=== PATIENT | male | born 1975 | race Caucasian/White ===

== ENCOUNTER → 2019-06-29 09:03 | Outpatient (CLI) | payer BC, SELFPAY ==
--- NOTE | ~2019-06-29 | MR_ITS ---
EXAMINATION: MR lumbar spine wo con EXAM DATE: 06/29/2019 10:19 INDICATION: Low back pain, bilateral leg pain. TECHNIQUE: Multi-sequential, multiplanar MR images of the lumbar spine were obtained without contrast . Sagittal T1, T2, T2 fat saturation images. Axial T2 weighted images. Comparison is made to prior examination from 07/04/2015. FINDINGS: There is moderate disc disease L5-S1 with 3 mm retrolisthesis. The vertebral bodies are oth erwise aligned. The vertebral body and disc heights are otherwise well maintained. There are no suspi cious marrow signal abnormalities. The conus medullaris terminates at the T12-L1 level and has normal signal intensity and morphology. Level by level evaluation: T12-L1: Disc does not extend beyond the endplate margin. Facet arthropathy: None. Neural foraminal stenosis: No stenosis. Central canal stenosis: No stenosis. L1-L2: There is a minimal diffuse disc bulge. Facet arthropathy: Mild. Neural foraminal stenosis: No stenosis. Central canal stenosis: No stenosis. L2-L3: There is a minimal diffuse disc bulge. Facet arthropathy: Mild. Neural foraminal stenosis: No stenosis. Central canal stenosis: No stenosis. L3-L4: There is a mild diffuse disc bulge. Facet arthropathy: Mild. Neural foraminal stenosis: Mild to moderate left, mild right. Central canal stenosis: Mild. L4-L5: There is a mild to moderate diffuse disc bulge. Facet arthropathy: Mild. Neural foraminal stenosis: Mild to moderate left, mild right. Central canal stenosis: Mild to moderate. L5-S1: There is a mild to moderate diffuse disc bulge. Facet arthropathy: Mild. Neural foraminal stenosis: Mild bilateral. Central canal stenosis: Mild. Mild progression compared to prior study. IMPRESSION: Mild to moderate lower lumbar spondylosis. Reviewed, dictated and finalized at location B. ER ANALYST
== END ==
PROVIDERS: Visit Provider Physician Assistant Medical
DX: M47.26 Other spondylosis with radiculopathy, lumbar region (principal)
CPT/HCPCS: 72148

== ENCOUNTER 2020-11-20 10:51 | Emergency (ER) | payer BC, SELFPAY ==
[2020-11-20 10:58] VITALS: BP 112/73; PULSE 84; RESP 16; TEMP 36.8; O2SAT 98
--- NOTE | 2020-11-20 11:41 | ED.BURNSMOKE ---
HPI - Burn/Smoke Inhalation General Chief complaint: Burn/Smoke Inhalation Stated complaint: rt finger burn Time Seen by Provider: 11/20/20 11:38 Source: patient and RN notes reviewed Mode of arrival: ambulatory Limitations: no limitations History of Present Illness HPI Narrative: 44 year old male presents with concern for burn to the 2nd digit of the right hand that he sustained while cooking last night. He reports an intact blister to the dorsal aspect of the digit not involving the nail bed. He denies any decrease sensation, strength, range of motion, purulent drainage to the digit. Reports he put a an [id number] burn cream on the burn last night. MD Complaint: burn Related Data Home Medications Medication Instructions Recorded Confirmed buprenorphine HCl mg SUBLINGUAL 11/20/20 buspirone mg 11/20/20 sertraline mg 11/20/20 Allergies Allergy/AdvReac Type Severity Reaction Status Date / Time NSAIDS (Non-Steroidal Allergy Intermediate Unknown Verified 06/19/17 19:50 Anti-Inflamma naproxen Allergy Unknown Verified 04/30/16 19:03 Review of Systems Review of Systems: Narrative: CONSTITUTIONAL: Denies malaise, chills, sweats, or fever. SKIN: Reports a blister to the second digit of the right hand MUSCULOSKELETAL: Denies muscle skeletal pain NEUROLOGIC: Denies numbness, weakness All systems reviewed & are unremarkable except as noted in HPI and below PMFSH Comments At time of signature, agree with nursing past medical, surgical, social and family history. There is no relevant family history pertinent to the presenting complaint Exam Narrative: Exam Narrative: GENERAL: Well-appearing, well-nourished, and in no acute distress. HEAD: Normocephalic, atraumatic. EYES: PERRLA, conjunctivae clear, and EOMI. ENT: Mucous membranes moist. Oropharynx without edema, erythema or lesions. NECK: Supple. No lymphadenopathy CHEST: Clear to auscultation. No respiratory distress. HEART: Regular rate and rhythm. SKIN: Warm, dry. 1 cm in diameter intact blister with clear fluid noted to the dorsal aspect of the distal second digit of the right hand with mild surrounding erythema without induration, edema, drainage. NEURO: Alert and oriented x3. PSYCH: Normal mood and affect Course Course Emergency Course: Patient is aware of diagnosis, understands and agrees to treatment plan. Anticipatory guidance given. Patient agrees to follow-up as directed and is aware of reasons to seek care at the emergency department. Portions of this record may have been created with voice recognition software Vital Signs Vital signs: Vital Signs Temperature 98.2 F 11/20/20 10:58 Pulse Rate 84 11/20/20 10:58 Respiratory Rate 16 11/20/20 10:58 Blood Pressure 112/73 11/20/20 10:58 Pulse Oximetry 98 11/20/20 10:58 Temperature 98.2 F 11/20/20 10:58 Pulse Rate 84 11/20/20 10:58 Respiratory Rate 16 11/20/20 10:58 Blood Pressure 112/73 11/20/20 10:58 Pulse Oximetry 98 11/20/20 10:58 Reviewed. MDM - Burn/Smoke Inhalation MDM Narrative Medical decision making narrative: Exam findings show no acute concerns or changes; patient is non-toxic appearing and is in no distress. Patient is appropriate for outpatient treatment and follow-up. Critical Care Time Critical Care Time Critical Care Time: No Discharge Plan Discharge Clinical Impression: Second degree burn Patient Disposition: Home, Self-Care Condition: Stable Instructions: Second-Degree Burn (ED) Additional Instructions: 1) Please follow-up with your primary care doctor if symptoms worsen or do not improve. Look for signs of infection such as increasing redness, pain, swelling, if you notice any of these please follow-up with your primary care provider. 2) If you have any urgent concerns please go to the ER. 3) Please take medications as prescribed and continue taking your home medications as usual. 4) Please read and follow information incl
== END 2020-11-20 11:54 | disposition home or self-care (01) ==
PROVIDERS: Emergency Provider Nurse Practitioner
DX: T23.221A Burn of second degree of single right finger (nail) except thumb, initial encounter (principal); X08.8XXA Exposure to other specified smoke, fire and flames, initial encounter; Y93.G3 Activity, cooking and baking; F41.9 Anxiety disorder, unspecified
CPT/HCPCS: 99203; G0463

== ENCOUNTER 2021-09-17 01:55 | Emergency (ER) | payer BC, SELFPAY ==
--- NOTE | ~2021-09-17 | XR_ITS ---
EXAMINATION: XR abdomen/kub 1V INDICATION: Bilateral flank pain, nausea and vomiting TECHNIQUE: Supine views of the abdomen were obtained on 2 radiographs. COMPARISON: None FINDINGS: The bowel gas pattern is normal. There are no dilated loops of bowel. A phlebolith is noted in the left pelvis. IMPRESSION: 1. Unremarkable abdominal radiographs. Reviewed, dictated and finalized at location A.
[2021-09-17 02:02] VITALS: BP 155/90; PULSE 89; RESP 18; TEMP 36.3; O2SAT 100
[2021-09-17] MEDS: ONDANSETRON HCL ODT 4 MG TABLET PO (02:14)
--- NOTE | 2021-09-17 02:19 | ED.URI ---
HPI - URI/Sore Throat General Chief Complaint: Abdominal Pain Stated Complaint: N/V/D, SOB, hematuria Time Seen by Provider: 09/17/21 02:02 History of Present Illness HPI Narrative: 45-year-old male diagnosed with COVID several days ago presents stating that he is having body aches, nausea and vomiting and diarrhea he states he is unable to keep anything down. Related Data Home Medications Medication Instructions Recorded Confirmed buspirone mg 11/20/20 sertraline mg 11/20/20 hydrocodone bitartrate mg PO 09/17/21 tizanidine mg 09/17/21 Allergies Allergy/AdvReac Type Severity Reaction Status Date / Time NSAIDS (Non-Steroidal Allergy Intermediate Unknown Verified 06/19/17 19:50 Anti-Inflamma naproxen Allergy Unknown Other Verified 09/17/21 02:05 Review of Systems Review of Systems: CONST: Fever HEENT: Sore throat C/V: No chest pain RESP: Cough GI: Reports nausea, vomiting[, diarrhea] : Dark urine. M/S: Muscle aches. SKIN: No rash. NEURO: [No focal numbness or weakness] PSYCH: [No depression] [facility] Past Medical History Medical History (Updated 09/17/21 @ 04:11 by Mili Edwards MD) Chronic back pain Social History Social History (Updated 09/17/21 @ 04:11 by Mili Edwards MD) Living arrangements: with family Exam Narrative: EXAMINATION OF ORGAN SYSTEMS/BODY AREAS: Constitutional: Vital signs per nursing GENERAL:[No acute distress, non-toxic appearing.] HEAD: Normal with no signs of head trauma. EYES: EOMI, conjunctiva normal ENT: Hearing grossly intact LUNGS: Nonlabored breathing. HEART: [Regular rate and rhythm] ABD: [Soft], [nontender to palpation] BACK: No CVAT but TTP lower back without midline tenderness EXT: Normal range of motion SKIN: [No rashes or lesions.] NEURO: [Alert and oriented x 3. No gross focal sensory or strength deficits.] Course Course Emergency Course: 45-year-old male presents with body aches and nausea from COVID, vital signs stable here, exam shows well-appearing patient with tenderness of his lower back, I suspect likely all symptoms from the virus, doubt any intra-abdominal etiology without tenderness, doubt kidney stones without flank pain but given his report of dark urine and back pain I will obtain a KUB and UA. He is unable to provide urine at this time, KUB does not show stones, he is tolerating p.o. after Zofran and can be discharged home on this medication. Strict return precautions provided including any increase difficulty breathing or inability to tolerate p.o. Vital Signs Vital signs: Vital Signs Temperature 97.4 F L 09/17/21 02:02 Pulse Rate 89 09/17/21 02:02 Respiratory Rate 18 09/17/21 02:02 Blood Pressure 155/90 H 09/17/21 02:02 Pulse Oximetry 100 09/17/21 02:02 Temperature 97.4 F L 09/17/21 02:02 Pulse Rate 70 09/17/21 03:01 Respiratory Rate 17 09/17/21 03:01 Blood Pressure 132/86 09/17/21 03:01 Pulse Oximetry 99 09/17/21 03:01 Discharge Plan Discharge Clinical Impression: COVID-19 Patient Disposition: Home, Self-Care Condition: Stable Instructions: Antibiotic Form, COVID-19 (Coronavirus Disease 2019) (ED) Additional Instructions: Get some rest when you get home, you can take the nausea medicine as needed and follow up with your doctor. Prescriptions: New ondansetron 4 mg tablet,disintegrating 4 mg PO Q6H PRN (Reason: nausea and vomiting) Qty: 10 RF: 0 No Action buspirone 7.5 mg tablet RF: 0 sertraline 50 mg tablet RF: 0 silver sulfadiazine [Silvadene] 1 % cream 1 applic topical DAILY Qty: 25 RF: 0 tizanidine 4 mg tablet RF: 0 hydrocodone bitartrate 30 mg capsule, oral only, ER 12hr PO RF: 0 Follow-up/Referrals: PHYSICIAN,DELIVERY SUPERVISOR [Primary Care Provider] -
[2021-09-17 03:01] VITALS: BP 132/86; PULSE 70; RESP 17; O2SAT 99
== END 2021-09-17 03:21 | disposition home or self-care (01) ==
PROVIDERS: Emergency Provider Emergency Medicine
DX: U07.1 COVID-19 (principal)
CPT/HCPCS: 74018; 99283; A9270

== ENCOUNTER 2021-09-18 21:17 | Emergency (ER) | payer BC, SELFPAY ==
--- NOTE | ~2021-09-18 | CT_ITS ---
EXAMINATION: CT brain wo con DATE: 09/18/2021 21:58 INDICATION: headache, syncope TECHNIQUE: Computed tomography (CT) of the head was performed without intravenous contrast. The mA wa s adjusted according to patient size. Iterative reconstruction technique was employed. The dose-lengt h product was 605.33 mGy-cm. COMPARISON: None FINDINGS: No acute intracranial hemorrhage or extra-axial fluid collection. No hydrocephalus, mass, or herniation. No acute ischemic infarct. Unremarkable dural venous sinus attenuation. No acute osseous abnormality. The aerated spaces are clear. IMPRESSION: No acute intracranial process. Reviewed, dictated and finalized at location K.
--- NOTE | ~2021-09-18 | XR_ITS ---
EXAMINATION: XR chest 1V portable Exam Date/Time: 09/18/2021 22:00 CDT CLINICAL HISTORY: sob, covid+ 09/14,CHEST TIGHTNESS,SOMNOLENCE,PALE,DIAPHORETIC Comparison: None available. RESULT: Lines, tubes, and devices: None. Lungs and pleura: Clear. Cardiomediastinal silhouette: Normal cardiomediastinal silhouette. Other: No acute osseous or upper abdominal finding. IMPRESSION: No acute cardiopulmonary process Reviewed, dictated and finalized at location K.
--- NOTE | ~2021-09-18 | CT_ITS ---
EXAMINATION: CTA chest PE abdomen pel DATE: 09/18/2021 23:33 INDICATION: Shortness of breath. Abnormal liver function tests. COVID-19 positive. TECHNIQUE: Computed tomography angiography (CTA) of the chest was performed with 100 mL Omnipaque-350 intravenous contrast timed to evaluate the pulmonary arteries. Coronal maximum intensity projection 3D-reconstructions were created by the technologist. Computed tomography (CT) of the abdomen and pelv is was performed with intravenous contrast. Automated exposure control and iterative reconstruction t echnique were employed. The dose-length product was 602.33 mGy-cm. COMPARISON: None. FINDINGS: CTA chest: The lungs demonstrate mild atelectasis. No pleural effusion. The heart size is normal. No pericardial effusion. There is no pulmonary embolus. There is mild chronic anterior wedging of multip le thoracic vertebral bodies. There is mild thoracic spondylosis. CT abdomen and pelvis: The gallbladder is normal in size. Gallbladder wall thickening is noted. The l iver, spleen, pancreas, adrenal glands, and left kidney are normal. There is a 5 mm cyst in right kid teresa. The bladder is distended. There are no dilated loops of bowel. The appendix is normal. There are no pathologically enlarged lymph nodes. There is no free intraperitoneal fluid. There is a subcutane ous radiopaque foreign body in anterior right thigh. IMPRESSION: 1. No pulmonary embolus. 2. Gallbladder wall thickening, which may be seen with interstitial edema, chronic cholecystitis, or chronic liver disease. Reviewed, dictated and finalized at location B. IMPRESSION: 1. No pulmonary embolus. 2. Gallbladder wall thickening, which may be seen with interstitial edema, digital publishing specialist niraj cholecystitis, or chronic liver disease.
[2021-09-18 21:17] VITALS: BP 105/68; PULSE 45; RESP 17; TEMP 36.4; O2SAT 98
[2021-09-18] MEDS: SODIUM CHLORIDE 0.9% IV 1,000 ML 999 ML (21:26)
--- NOTE | 2021-09-18 21:44 | ECG_ITS ---
Measurements Intervals [place] Rate: 44 P: 54 NV: 164 QRS: -6 QRSD: 78 T: 23 QT: 476 QTc: 411 Interpretive Statements SINUS BRADYCARDIA BASELINE WANDER- I, II, AVR, AVF ABNORMAL ECG Electronically Signed On 09-19-2021 6:28:36 CDT by Pascual Miller D.O.
[2021-09-18] MEDS: HYDROmorphone HCL INJ (*CRX) 1 MG/ML SYR 0.5 MG IV PUSH (22:24)
[2021-09-18 22:26] LABS: Basophils Absolute Auto 0.1 K/mm3 (0.0-0.1); Basophils Percent Auto 0.6 % (0.2-1.2); Eosinophils Percent Auto 0.5 % (0-4.4); Hematocrit 43.9 % (42.0-52.0); Immature Granulocyte Absolute 0.17 K/mm3 (0.00-0.031); Immature Granulocyte Percent A 1.9 % (0-0.5); Lymphocytes Absolute Auto 1.29 K/mm3 (0.9-3.2); Lymphocytes Percent Auto 14.6 % (18.3-44.2); Mean Corpuscular HGB Conc 34.2 g/dl (32-36); Mean Corpuscular Hemoglobin 30.2 pg (26-34); Mean Corpuscular Volume 88.5 fl (80-100); Mean Platelet Volume 10.5 fl (7.4-10.4); Monocytes Absolute Auto 0.5 K/mm3 (0.1-0.6); Monocytes Percent Auto 5.9 % (2.6-8.5); Neutrophils Absolute Auto 6.8 K/mm3 (1.3-6.7); Neutrophils Percent Auto 76.5 % (45.5-73.1); Platelet Count Result 163 k/mm3 (150-375); Red Blood Count 4.96 M/mm3 (4.6-6.20); Red Cell Distribution Width 14.1 % (11.5-14.5); White Blood Count 8.9 K/mm3 (4.5-10.0)
[2021-09-18 22:29] LABS: Lactic Acid Reflex 3.9 mmol/L (0.7-2.0)
[2021-09-18 22:32] LABS: Partial Thromboplastin Time 39.8 SECONDS (22.3-36.8); Prothrombin Time 49.8 Seconds (11.1-14.7)
[2021-09-18 22:33] LABS: Ethanol < 10 mg/dL (<10)
[2021-09-18 22:46] LABS: Troponin I < 0.012 ng/mL (0.000-0.034)
[2021-09-18 22:52] LABS: Albumin Level 3.5 g/dL (3.5-5.1); Alkaline Phosphatase 100 U/L (38-126); Anion Gap 6 mmol/L (8-16); Bilirubin,Total 5.2 mg/dL (0.2-1.3); Blood Urea Nitrogen 21 mg/dL (9-20); CRP 0.9 mg/dL (<1.0); Calcium 7.9 mg/dL (8.4-10.2); Carbon Dioxide 25 mmol/L (22-30); Chloride 102 mmol/L (98-107); Estimated CRCL calculation 77 ml/min; Estimated Glomerular Filt Rate > 60; Glucose 91 mg/dL (65-110); Lipase 338 U/L (23-300); Magnesium 2.2 mg/dL (1.6-2.3); Potassium 4.5 mmol/L (3.4-5.0); Sodium 133 mmol/L (137-145)
[2021-09-18 22:53] LABS: INR 5.7
[2021-09-18 22:57] VITALS: PULSE 43
[2021-09-18] MEDS: ATROPINE SULFATE 1 MG/10 ML SYRINGE IV PUSH (22:57)
[2021-09-18 23:00] VITALS: PULSE 61
[2021-09-18 23:08] LABS: Alanine Aminotransferase > 3750 U/L (6-50)
[2021-09-18 23:09] LABS: Aspartate Amino Transferase 5434 U/L (17-59)
[2021-09-18 23:10] LABS: D Dimer 10.75 ug/mL (<0.48)
--- NOTE | 2021-09-18 23:23 | PC.NURSE ---
spoke with patient regarding code status. patient's wishes are for CPR only with no intubation. Dr Romo aware. patient's updated on condition
[2021-09-18 23:39] VITALS: BP 132/79; PULSE 58; RESP 14; O2SAT 98
[2021-09-18] MEDS: SODIUM CHLORIDE 0.9% IV 1,000 ML 999 ML IV CONT (23:41)
[2021-09-18 23:59] LABS: Hepatitis B Surface Antigen Negative (Negative)
[2021-09-19] VITALS (57 sets, daily range): BP systolic 74–140; BP diastolic 39–85; PULSE 47–83; RESP 11–20; O2SAT 18–100
[2021-09-19 00:04] LABS: HAV RESULT Negative (Negative); Hepatitis B Core IgM Result Negative (Negative)
--- NOTE | 2021-09-19 00:09 | ED.DIZZY ---
HPI - Dizziness General Chief Complaint: Dizziness <Caroline Romo MD - Last Filed: 09/19/21 07:51> Stated Complaint: low bp, multiple syncopal x days, covid + <Caroline Romo MD - Last Filed: 09/19/21 07:51> Time Seen by Provider: 09/18/21 21:31 <Caroline Romo MD - Last Filed: 09/19/21 07:51> Source: patient <Caroline Romo MD - Last Filed: 09/19/21 07:51> Mode of arrival: ambulatory <Caroline Romo MD - Last Filed: 09/19/21 07:51> Limitations: no limitations <Caroline Romo MD - Last Filed: 09/19/21 07:51> History of Present Illness HPI Narrative: This is a 45 year old male who presents for evaluation of weakness and hypotension. Patient developed symptoms of covid on Friday and he was evaluated at urgent care. He was having nausea, vomiting and diarrhea on Friday and friday. He was also having shortness of breath, mid abdominal pain and substernal chest pain. He was evaluated in [facility] on 09/17 and discharged home. Patient states he has not had any vomiting or diarrhea since Friday. He reports epigastric pain that is present with sitting up. He states last night he tripped and fell hitting his head. EMS reports patient had 2 syncopal episodes today. EMS found patient to be bradycardic and hypotensive. He was started on NS 800 ml. <Caroline Romo MD - Last Filed: 09/19/21 07:51> Related Data Home Medications: Home Medications Medication Instructions Recorded Confirmed buspirone 7.5 mg PO 11/20/20 sertraline 50 mg PO 11/20/20 hydrocodone bitartrate 30 mg PO 09/17/21 tizanidine 4 mg PO 09/17/21 diphenhydramine HCl [Benadryl] 100 mg PO Q4-5H 09/19/21 <Caroline Romo MD - Last Filed: 09/19/21 07:51> Allergies/Adverse Reactions: Allergies Allergy/AdvReac Type Severity Reaction Status Date / Time NSAIDS (Non-Steroidal Allergy Intermediate Unknown Verified 09/19/21 08:32 Anti-Inflamma naproxen Allergy Unknown Other Verified 09/19/21 08:32 <Caroline Romo MD - Last Filed: 09/19/21 07:51> Review of Systems Review of Systems: All systems reviewed & are unremarkable except as noted in HPI and below <Caroline Romo MD - Last Filed: 09/19/21 07:51> Constitutional: Constitutional: Reports fatigue <Caroline Romo MD - Last Filed: 09/19/21 07:51> Cardiovascular: Cardiovascular: Reports chest pain, Denies rapid heart rate and Denies radiating jaw, neck or arm pain <Caroline Romo MD - Last Filed: 09/19/21 07:51> Respiratory: Respiratory: Reports cough and Reports dyspnea <Caroline Romo MD - Last Filed: 09/19/21 07:51> Gastrointestinal: Gastrointestinal: Reports abdominal pain, Reports diarrhea, Reports nausea and Reports vomiting <Caroline Romo MD - Last Filed: 09/19/21 07:51> Musculoskeletal: Musculoskeletal: Denies back pain and Reports myalgias <Caroline Romo MD - Last Filed: 09/19/21 07:51> Neurologic: Reports syncope and Reports headache(s) <Caroline Romo MD - Last Filed: 09/19/21 07:51> [facility] Past Medical History Medical History: Medical History (Updated 09/19/21 @ 12:05 by Watson Arnold MD) Chronic back pain Fatty liver <Caroline Romo MD - Last Filed: 09/19/21 07:51> Social History Social History: Social History (Updated 09/19/21 @ 00:15 by Caroline Romo MD) Smoking status: Never smoker Alcohol intake: former <Caroline Romo MD - Last Filed: 09/19/21 07:51> Exam Const: General: ill appearing <Caroline Romo MD - Last Filed: 09/19/21 07:51> Orientation/consciousness: patient oriented x3 <Caroline Romo MD - Last Filed: 09/19/21 07:51> Eyes: Pupils: Equal, round and reactive pupils present <Caroline Romo MD - Last Filed: 09/19/21 07:51> EOM: EOMs intact bilaterally <Caroline Romo MD - Last Filed: 09/19/21 07:51> Chest: Chest palpation & inspection: normal inspection of the chest <Caroline Romo MD - Last F
[2021-09-19 00:17] LABS: Hepatitis C Virus Antibody Negative (Negative)
[2021-09-19 00:33] LABS: SARS-CoV-2 RNA PCR Positive
--- NOTE | 2021-09-19 01:09 | PC.NURSE ---
Call [facility] at [phone] not accepting patients. Call [facility] at [phone] not accepting patients. Call [facility] [phone] waiting on hospitalist to call back.
[2021-09-19 01:17] LABS: Reflex Lactic Acid Yes or No Add Lactic
[2021-09-19] MEDS: SODIUM CHLORIDE 0.9% IV 1,000 ML 150 ML IV CONT (01:49)
[2021-09-19 01:58] LABS: Acetaminophen 20 ug/mL (10-30); Lactic Acid 1.8 mmol/L (0.7-2.0)
[2021-09-19] MEDS: DOPamine 400 MG/D5W 250 ML 400 MG/250 ML BAG 13.43 MG IV CONT (02:52)
--- NOTE | 2021-09-19 03:55 | PC.NURSE ---
Patient unable to urinate. Patient keeps requesting to sit up on the side of the bed to void and we stated to him that it is not a good idea at this time. Patient then proceeded to stay in bed and try to void
--- NOTE | 2021-09-19 04:28 | PC.NURSE ---
This RN talked to poison control and they stated that the patient shoudl get a dose of Mucomyst, have a GI consult, and also have a dose of Vitamin K. This RN notified EDP Romo
--- NOTE | 2021-09-19 04:48 | PC.NURSE ---
Poison control called and stated, She just wants to make sure we keep the patient on a continuous dose of Mucomyst until patient sees a GI consult. Also she wanted us to know that the patient will most likely not recover from this
--- NOTE | 2021-09-19 04:55 | PC.NURSE ---
Patient called asking for an update and this RN informed her there is no update at this time we are still trying to find a hospital to transfer the patient to.
--- NOTE | 2021-09-19 05:14 | PC.NURSE ---
This RN talked to Pharmacy and they stated they are mixing up the medications now.
[2021-09-19] MEDS: PHYTONADIONE ADULT INJ 10 MG in DEXTROSE 5% IN WATER 50 ML 100 MG IVPB (05:41)
--- NOTE | 2021-09-19 07:13 | PC.NURSE ---
central line placed in left femoral. EDP Romo placed with this RN assistance.
[2021-09-19] MEDS: WATER IVPB (08:29)
[2021-09-19] MEDS: ACETYLCYSTEINE IVPB (08:29)
[2021-09-19] MEDS: DEXTROSE 5% IVPB (08:29)
[2021-09-19 08:47] LABS: Appearance Urine Clear (Clear); Bilirubin Urine 1+ (Negative); Blood Urine 1+ (Negative); Color Urine Yellow (Yellow); Glucose Urine UA Negative (Negative); Ketones Urine 1+ mg/dL (Negative); Leukocyte Esterase Ur Negative LEU/UL (Negative); Nitrate Urine Negative (Negative); Protein Urine 1+ mg/dL (Negative); Specific Grav Ur 1.015 (1.001-1.035); pH Urine 6.5 (5.0-9.0)
[2021-09-19 08:52] LABS: Mucus Urine Rare /lpf; RBC Urine 0-2 /hpf (0-2); WBC Urine 0-3 /hpf
[2021-09-19 08:55] LABS: Add Urine Microscopic? YES
[2021-09-19] MEDS: HYDROmorphone HCL INJ (*CRX) 1 MG/ML SYR 0.5 MG IV PUSH (09:01)
[2021-09-19] MEDS: SODIUM CHLORIDE 0.9% IV 1,000 ML 150 ML (09:04)
--- NOTE | 2021-09-19 11:24 | PC.NURSE ---
bed received at [place] [id number]
--- NOTE | 2021-09-19 11:44 | PC.NURSE ---
This RN updated on patient disposition. [facility] made aware that pt has been placed elsewhere.
== END 2021-09-19 13:52 | disposition short-term general hospital (02) ==
PROVIDERS: General Practice; Emergency Provider Emergency Medicine
DX: U07.1 COVID-19 (principal); K72.00 Acute and subacute hepatic failure without coma; T39.1X1A Poisoning by 4-Aminophenol derivatives, accidental (unintentional), initial encounter; D68.9 Coagulation defect, unspecified; Z79.899 Other long term (current) drug therapy
CPT/HCPCS: 36415; 36556; 51702; 70450; 71045; 71275; 74177; 80053; 80074; 80307; 81001; 83605; 83690; 83735; 84484; 85025; 85380; 85610; 85730; 86140; 93005; 96361; 96365; 96366; 96367; 96375; 96376; 99285; C1751; C9803; J0131; J0132; J0461; J1170; J1265; J3430; J7030; J7060; Q9967; U0003; U0005

== ENCOUNTER → 2021-12-20 11:25 | Outpatient (CLI) | payer BC, SELFPAY ==
--- NOTE | ~2021-12-20 | CT_ITS ---
EXAMINATION: CT diagnostic chest w con DATE: 12/20/2021 11:53 INDICATION: Shortness of breath TECHNIQUE: Transaxial computed tomographic images of the chest were obtained after the administration of 75 cc of Omnipaque 350 intravenous contrast. The dose-length product (DLP) was 237.44 mGy-cm. Ite rative reconstruction was used. COMPARISON: 09/18/2021 FINDINGS: The lungs are free of acute opacities. No pathologically enlarged thoracic lymph nodes are identified. The heart size is normal. No pleural effusion or pneumothorax. There is mild thoracic spo ndylosis. IMPRESSION: 1. No acute cardiopulmonary abnormality. Reviewed, dictated and finalized at location A.
== END ==
PROVIDERS: PCP Nurse Practitioner; Visit Provider Nurse Practitioner
DX: R06.02 Shortness of breath (principal); J18.9 Pneumonia, unspecified organism; U09.9 Post COVID-19 condition, unspecified
CPT/HCPCS: 71260; Q9967